=== PATIENT | male | born 1985 | race Caucasian/White ===

== ENCOUNTER → 2019-03-13 | Outpatient (CLI) | payer OTHER ==
--- NOTE | 2019-03-16 08:53 | RADIOLOGY REPORT (SQ) ---
EXAM DESCRIPTION: CT SINUSES FOR ENT COMPLETED DATE/TIME: 03/13/2019 9:43 am REASON FOR STUDY: (J32.9)CHRONIC SINUSITIS, UNSPECIFIED J32.9 CHRONIC SINUSITIS, UNSPECIFIED COMPARISON: None. TECHNIQUE: Noncontrast scanning through the paranasal sinuses using bone algorithm. Reconstructed MPR images reviewed. All images stored on PACS. All CT scanners at this facility use dose modulation, iterative reconstruction, and/or weight based d osing when appropriate to reduce radiation dose to as low as reasonably achievable (ALARA). [facility]: Dose Right [facility]: CareDose [facility]: Dose Right [facility]: Teradose 4D [facility]: [employer]Main RADIATION DOSE: 47.2mGy. LIMITATIONS: None. FINDINGS: Right sinuses and drainage pathways: Post-surgical changes: None. Frontal sinus: Mild mucous membrane thickening along the inferior aspect right frontal sinus Frontoethmoidal Recess: Opacified with mucous membrane thickening Anterior Ethmoid Sinuses: Mucous membrane thickening Posterior Ethmoid Sinuses: Normal. Sphenoid Sinus: Normal. Sphenoethmoidal Recess: Opacified with mucous membrane thickening on axial image 89 Maxillary Sinus: Mucus or serous retention cyst floor right maxillary sinus coronal image 19 Ostiomeatal Complex: Narrowing of the maxillary sinus sella with mucous membrane thickening and Connolly er cells on coronal image 19. Left Sinuses and Drainage Pathways: Post-Surgical Changes: None. Frontal Sinus: Mucous membrane thickening along the floor of the left frontal sinus Frontoethmoidal Recess: Normal. Anterior Ethmoid Sinuses: Normal. Posterior Ethmoid Sinuses: Normal. Sphenoid Sinus: Normal. Sphenoethmoidal Recess: Mucous membrane thickening along the left sphenoid sinus outlet axial image 91 Maxillary Sinus: Normal. Ostiomeatal Complex: Narrowing of the left maxillary sinus outlet on coronal image 19 from Elvin ce lls Right Olfactory Fossa: No polyps Left Olfactory Fossa: No polyps Middle Turbinate Cecelia Bullosa: No. Paradoxical Middle Turbinate: No Atelectatic Uncinated Process: No Frontal Hermelinda Cell Type I: On the right Frontal Heremlinda Cell Type II: On the left Interfrontal Sinus Septal Cell: None. Suptra-Orbital Ethmoid: On the left Frontal Bullar Cell: Under lingular Suprabullar Bullar Cell: None. Sphenoethmoidal ([place]) Cell: None. Pneumatization of the Anterior Clinoid Processes: On the right, axial image 85 Hypoplastic Maxillary Sinus: None. Osteoneogenesis: None. Bone Dehiscence: None. Nasal Cavity: Normal. Nasal Septum: There is leftward nasal septal deviation along the anterior 3rd of the nasal septum be st shown on axial image 87 and coronal image 14 Anatomic Variants: Right Vidian Canal: Normal Left Vidian Canal: Normal IMPRESSION: Mild mucous membrane thickening in the paranasal sinuses as above. Leftward nasal septal deviation, anterior 3rd of the nasal septum TECHNICAL DOCUMENTATION: JOB ID: [id number] Quality ID # [id number]: Final reports with documentation of one or more dose reduction techniques (e.g., Au tomated exposure control, adjustment of the mA and/or kV according to patient size, use of iterative reconstruction technique) 2010 [employer]- All Rights Reserved Reading location - IP/workstation name: [email or web address]
== END ==
LOC: RAD 09:25
PROVIDERS: ATTEND Otolaryngology
DX: J32.9 Chronic sinusitis, unspecified (principal); J34.2 Deviated nasal septum
CPT/HCPCS: 70486